=== PATIENT | female | born 1965 | race African-American/Black ===

== ENCOUNTER 2018-05-05 14:09 | Emergency (ER) | payer SELFPAY ==
[~2018-05-05] VITALS: Ht 170.2 cm; Wt 85.5 kg
[2018-05-05] MEDS ORDERED: AMIT10TA6 PO (14:20)
[2018-05-05] MEDS ORDERED: GABA-531 PO (14:20)
[2018-05-05 17:37] VITALS: BP 140/82
== END 2018-05-05 17:54 | disposition home or self-care (01) ==
LOC: EMS 14:10
DX: S09.90XA Unspecified injury of head, initial encounter (principal); F17.210 Nicotine dependence, cigarettes, uncomplicated; Y04.0XXA Assault by unarmed brawl or fight, initial encounter; Y93.89 Activity, other specified; Y92.89 Other specified places as the place of occurrence of the external cause; Y99.8 Other external cause status
CPT/HCPCS: 70450; 99284

== ENCOUNTER 2019-03-25 14:53 | Emergency (ER) | payer MEDICAID ==
[~2019-03-25] VITALS: Ht 170.2 cm; Wt 90.9 kg
[~2019-03-25 14:53] MED LIST: AMIT10TA6 PO; GABA-531 PO
[2019-03-25] MEDS ORDERED: AMIT25TA9 PO (15:19)
[2019-03-25] MEDS ORDERED: GABA-533 PO (15:19)
[2019-03-25] MEDS ORDERED: HYDROCODONE/ACETAMINOPHEN 5-325 MG TABLET PO ONE (17:15)
[2019-03-25] MEDS ORDERED: CIPROFLOXACIN HCL 250 MG TABLET PO ONE (17:15)
[2019-03-25] MEDS ORDERED: PERTUSS(ACELL),DIPH,TET VAC/PF 0.5 ML VIAL IM ONE (18:00)
[2019-03-25 18:38] VITALS: BP 132/68
== END 2019-03-25 18:40 | disposition home or self-care (01) ==
LOC: EMS 14:55
DX: S91.332A Puncture wound without foreign body, left foot, initial encounter (principal); F32.9 Major depressive disorder, single episode, unspecified; R03.0 Elevated blood-pressure reading, without diagnosis of hypertension; F17.210 Nicotine dependence, cigarettes, uncomplicated; F12.90 Cannabis use, unspecified, uncomplicated; Z79.899 Other long term (current) drug therapy; Z90.710 Acquired absence of both cervix and uterus; W22.8XXA Striking against or struck by other objects, initial encounter; Y93.89 Activity, other specified; Y92.89 Other specified places as the place of occurrence of the external cause; Y99.8 Other external cause status
CPT/HCPCS: 90471; 90715

== ENCOUNTER 2020-01-29 16:22 | Emergency (ER) | payer MEDICAID ==
[~2020-01-29] VITALS: Ht 170.2 cm; Wt 103.0 kg
[~2020-01-29 16:22] MED LIST changes: -AMIT10TA6 PO; +AMIT25TA9 PO; -GABA-531 PO; +GABA-533 PO
[2020-01-29] MEDS ORDERED: PERCT PO (16:28)
[2020-01-29] MEDS ORDERED: METO25 PO (16:28)
[2020-01-29] MEDS ORDERED: APIX5TAB PO (16:28)
[2020-01-29] MEDS ORDERED: [UNRECOGNIZED DRUG - CODE] PO (16:28)
[2020-01-29] MEDS ORDERED: KETO30I IM (16:28)
[2020-01-29] MEDS ORDERED: IBUPROFEN 400 MG TABLET PO ONE (18:15)
[2020-01-29] MEDS ORDERED: ACETAMINOPHEN 325 MG TABLET PO ONE (18:15)
[2020-01-29] MEDS ORDERED: LIDOCAINE 5% TRANSDERMAL PATCH TD ONE (19:30)
[2020-01-29 20:27] VITALS: BP 149/77
== END 2020-01-29 20:28 | disposition home or self-care (01) ==
LOC: EMS 16:36
DX: M25.561 Pain in right knee (principal); F32.9 Major depressive disorder, single episode, unspecified; F17.210 Nicotine dependence, cigarettes, uncomplicated; F12.90 Cannabis use, unspecified, uncomplicated; Z90.710 Acquired absence of both cervix and uterus
CPT/HCPCS: 93971